=== PATIENT | male | born 1970 | race Caucasian/White ===

== ENCOUNTER 2020-04-15 11:38 | Emergency (ER) | payer OTHER ==
[~2020-04-15] VITALS: Ht 177.8 cm; Wt 88.5 kg
[2020-04-15 13:30] VITALS: Ht 177.8 cm; Wt 88.5 kg
[2020-04-15 16:23] VITALS: BP 133/79
== END 2020-04-15 16:23 | disposition home or self-care (01) ==
LOC: ED 11:38
DX: S60.222A Contusion of left hand, initial encounter (principal); I10 Essential (primary) hypertension; W22.8XXA Striking against or struck by other objects, initial encounter; Y93.89 Activity, other specified; Y92.89 Other specified places as the place of occurrence of the external cause; Y99.8 Other external cause status